=== PATIENT | male | born 1960 | race African-American/Black ===

== ENCOUNTER 2017-03-17 21:21 | Emergency (ER) | payer OTHER ==
[~2017-03-17] VITALS: Ht 175.3 cm; Wt 95.9 kg
[~2017-03-17 21:21] MED LIST: ASPI81TA50 PO; BIMA2.5D OP; BUME1TAB PO; CAPT25TA3 PO; CARV12.5 PO; CITA20TA5 PO; CRESTOR40 MG PO; RISP3TAB3 PO; SPIR50TA2 PO
[2017-03-17 21:30] VITALS: BP 105/61
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
== END 2017-03-17 22:40 | disposition home or self-care (01) ==
LOC: ER 21:21
DX: Z00.8 Encounter for other general examination (principal); S90.512A Abrasion, left ankle, initial encounter; S90.511A Abrasion, right ankle, initial encounter; F20.9 Schizophrenia, unspecified; I11.0 Hypertensive heart disease with heart failure; I50.40 Unspecified combined systolic (congestive) and diastolic (congestive) heart failure; E78.00 Pure hypercholesterolemia, unspecified; Y04.0XXA Assault by unarmed brawl or fight, initial encounter; Y93.89 Activity, other specified; Y99.8 Other external cause status; Y92.89 Other specified places as the place of occurrence of the external cause
CPT/HCPCS: 99283

== ENCOUNTER 2017-03-23 08:02 | Emergency (ER) | payer OTHER ==
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
--- NOTE | 2017-03-23 08:54 | RAD ---
Left foot, 2 views, 03/23/2017: History: Foot pain, no known injury No fracture or dislocation is identified. No destructive bony lesion is seen. There is mild subcutaneous edema. IMPRESSION: No acute bony abnormality is detected.
== END 2017-03-23 09:15 | disposition home or self-care (01) ==
LOC: ER 08:02
DX: Z00.00 Encounter for general adult medical examination without abnormal findings (principal); M79.672 Pain in left foot; I25.10 Atherosclerotic heart disease of native coronary artery without angina pectoris; I11.0 Hypertensive heart disease with heart failure; I50.9 Heart failure, unspecified; F20.9 Schizophrenia, unspecified; E78.5 Hyperlipidemia, unspecified; H40.9 Unspecified glaucoma
CPT/HCPCS: 73620; 99284

== ENCOUNTER 2017-04-14 14:26 | Emergency (ER) | payer OTHER ==
[~2017-04-14] VITALS: Ht 175.3 cm; Wt 95.9 kg
--- NOTE | 2017-04-14 14:47 | RAD ---
Indication: CHF. Time of exam 1442 hours. FINDINGS: The heart size is normal. The lungs are clear. No pleural effusion or pneumothorax is identified. The pulmonary vascularity is normal. IMPRESSION: No acute abnormality detected.
--- NOTE | 2017-04-14 14:56 | EKG ---
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
[2017-04-14 15:49] VITALS: BP 138/88
== END 2017-04-14 15:35 | disposition home or self-care (01) ==
LOC: ER 14:26
DX: Z71.1 Person with feared health complaint in whom no diagnosis is made (principal); R10.9 Unspecified abdominal pain; F20.9 Schizophrenia, unspecified; I50.9 Heart failure, unspecified; Z59.0 Homelessness
CPT/HCPCS: 71010; 93005; 99284-25

== ENCOUNTER 2017-05-28 14:59 | Emergency (ER) | payer OTHER ==
--- NOTE | 2017-05-28 15:54 | PHYS DOC ---
Past History Past Medical History: CHF, Schizophrenia Past Surgical History: Other Alcohol Use: None Drug Use: None Adult General Chief Complaint Chief Complaint: evaluation HPI HPI 57-year-old male presenting to the emergency department today with his family who is wanting him to be examined. They're concerned because the patient is homeless. They're trying to find psychiatric care for the patient. The patient has a history of chronic schizophrenia but has not been able to get his medications for many months. Not recall what medications he is on. The patient denies being suicidal homicidal. He has not been progressively agitated. Review of systems is negative for fevers chills cough nausea vomiting diarrhea constipation. All other review of systems is negative unless otherwise noted in history of present illness. ED course: 57-year-old male presenting to the emergency department today with family looking for psychiatric care. I recommended the patient be seen by a psychiatrist tomorrow and potentially a psychologist. As for the patient's homelessness I recommended a local homeless care home or possibly moving in with his family who is here with him today. Particularly if the patient moved in with the family members here with him he probably would get his medications straightened out in a faster order then a homeless care home. The patient did not appear to be at harm to himself or others. On physical examination he was calm and collective did not appear acutely psychotic. He was not endorsing suicidal or homicidal ideation. He was in discharged home to follow-up with a psychiatrist and a psychologist within the week and I recommended the patient moved in with his family members until he can be rehabilitated into self- sustaining status. Review of Systems Review of Systems SEE ABOVE Allergies Allergies Allergies Coded Allergies Type Severity Reaction Last Updated Verified No Known Drug Allergies 12/07/16 No Physical Exam Physical Exam Constitutional: Well developed, well nourished, no acute distress, non-toxic appearance. [] HENT: Normocephalic, atraumatic, bilateral external ears normal, oropharynx moist, no oral exudates, nose normal. [] Eyes: PERRLA, EOMI, conjunctiva normal, no discharge. [] Neck: Normal range of motion, no tenderness, supple, no stridor. [] Cardiovascular:Heart rate regular rhythm, no murmur [] Lungs & Thorax: Bilateral breath sounds clear to auscultation [] Abdomen: Bowel sounds normal, soft, no tenderness, no masses, no pulsatile masses. [] Skin: Warm, dry, no erythema, no rash. [] Back: No tenderness, no CVA tenderness. [] Extremities: No tenderness, no cyanosis, no clubbing, ROM intact, no edema. [] Neurologic: Alert and oriented X 3, normal motor function, normal sensory function, no focal deficits noted. [] Psychologic: Psych: Appearance: Moderately disheveled M/S: Alert and oriented Mood/Affect: Normal, calm and appropriate, congruent Speech: Normal Insight: poor Hallucinations: None, he denies SI or HI: None EKG EKG [] Radiology/Procedures Radiology/Procedures [] Course & Med Decision Making Course & Med Decision Making Pertinent Labs and Imaging studies reviewed. (See chart for details) [] Dragon Disclaimer Dragon Disclaimer This chart was dictated in whole or in part using Voice Recognition software in a busy, high-work load, and often noisy Emergency Department environment. It may contain unintended and wholly unrecognized errors or omissions. Departure Departure: Impression: Primary Impression: Evaluation by medical service required Disposition: 01 HOME, SELF-CARE Condition: STABLE Referrals: MEGAN HUGO MD (PCP) Additional Instructions: Follow-up with your doctor in 2-3 days. Thank you for allowing us to participate in your care today. Followup with your primary care physician in 3 days if your symptoms do not improve. Call your Primary Doctor tomorrow and inform them of your visit today. If you do not have a primary care provider you can ask for a list of our primary care providers. Return to the emergency department you have any new or concerning findings. This should be evaluated by the primary care physician and any necessary consulting services for continued management within a few days after discharge. Return to emergency room if you have any new or concerning symptoms including but not limited to fever, chills, nausea, vomiting, intractable pain, any new rashes, chest pain, shortness of air, uncontrolled bleeding, difficulty breathing, and/or vision loss. DELONTE SLATER MD May 28, 2017 15:54
[2017-05-28 16:00] VITALS: BP 120/66
== END 2017-05-28 16:25 | disposition home or self-care (01) ==
LOC: ER 14:59
DX: Z04.6 Encounter for general psychiatric examination, requested by authority (principal); F20.9 Schizophrenia, unspecified; I50.9 Heart failure, unspecified; Z59.0 Homelessness
CPT/HCPCS: 99284

== ENCOUNTER 2021-08-21 09:56 | Emergency (ER) | payer MEDICARE, OTHER ==
[~2021-08-21] VITALS: Ht 175.3 cm; Wt 98.0 kg
[~2021-08-21 09:56] MED LIST changes: -BUME1TAB PO; +BUME1TAB3 PO; -CITA20TA5 PO; +CITA20TA6 PO; -RISP3TAB3 PO; +RISP3TAB56 PO; -SPIR50TA2 PO; +SPIR50TA4 PO
[2021-08-21] MEDS ORDERED: IOHEXOL 350 MG/ML 100 ML VIAL. IV ONE (10:15)
[2021-08-21] MEDS ORDERED: IV NORMAL SALINE 1,000ML 1,000 ML IV SCH (10:15)
[2021-08-21] MEDS ORDERED: IOHEXOL 350 MG/ML 100 ML VIAL. ONE (10:16)
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
[2021-08-21 10:22] LABS: BASO % 1 % (0-3); EOS # 0.1 x10^3/uL (0.0-0.7); EOS % 1 % (0-3); HEMATOCRIT 47.7 % (39.0-53.0); HEMOGLOBIN 15.9 g/dL (13.0-17.5); LYMPH # 1.9 x10^3/uL (1.0-4.8); LYMPH % 24 % (24-48); MEAN CORPUSCULAR HEMOGLOBIN 32 pg (25-35); MEAN CORPUSCULAR HGB CONC 33 g/dL (31-37); MEAN CORPUSCULAR VOLUME 96 fL (79-100); MONO # 0.7 x10^3/uL (0.0-1.1); MONO % 9 % (0-9); NEUT % 65 % (31-73); PLATELET COUNT 108 x10^3/uL (140-400); RED BLOOD COUNT 4.99 x10^6/uL (4.30-5.70); RED CELL DISTRIBUTION WIDTH 13.7 % (11.5-14.5); WHITE BLOOD COUNT 7.7 x10^3/uL (4.0-11.0)
[2021-08-21] MEDS ORDERED: CONTRAST GIVEN. MC PRN (10:30)
[2021-08-21] MEDS ORDERED: ASPIRIN RECTAL 300 MG SUPP. PR ONE (10:30)
[2021-08-21 10:40] LABS: ALBUMIN 2.4 g/dL (3.4-5.0); CREATININE 0.7 mg/dL (0.7-1.3); GFR 139.2; MAGNESIUM 1.3 mg/dL (1.8-2.4); TOTAL BILIRUBIN 0.2 mg/dL (0.2-1.0); TOTAL PROTEIN 4.7 g/dL (6.4-8.2)
--- NOTE | 2021-08-21 10:42 | RAD ---
AP chest. HISTORY: Code stroke, weakness AP view was taken of the chest. There is no pleural effusion. Heart is normal in size. Patient's take n a poor inspiration. There are no confluent areas of infiltrate. IMPRESSION: 1. Poor inspiration. 2. No acute infiltrates. Electronically signed by: Norm Blanco MD (08/21/2021 10:40 AM) [id number]
[2021-08-21] MEDS ORDERED: MAGNESIUM SULFATE 2GM 50 ML IV ONE (11:15)
--- NOTE | 2021-08-21 11:17 | PHYS DOC ---
Past History Past Medical History: CHF, Schizophrenia Past Medical History Limited secondary to expressive aphasia/dysarthria Past Surgical History: Other Additional Past Surgical Histo: unknown Past Surgical History Limited secondary to expressive aphasia/dysarthria Alcohol Use: Sober Drug Use: None Social History Limited secondary to expressive aphasia/dysarthria General Adult EDM: Chief Complaint: NEURO SYMPTOMS/DEFICITS HPI: HPI: 61-year-old male presents via EMS with report of code stroke. Patient was found by family members to be confused with slurred speech and right-sided weakness. Patient does have a history of prior CVA with unknown deficit. No known trauma. Unclear if patient is on any blood thinners. Patient is a poor historian. History of present illness limited secondary to expressive aphasia/dysarthria Review of Systems: Review of Systems: Constitutional: Denies fever Respiratory: Denies shortness of breath Cardiovascular: Denies chest pain GI: Denies vomiting Neurologic: Reports right sided weakness, expressive aphasia, and dysarthria Review of systems limited secondary to severe expressive aphasia and dysarthria Current Medications: Current Meds: Current Medications Medications (Trade) Dose Ordered Sig/Shaila Start Time Stop Time Status Last Admin Dose Admin Aspirin (Aspirin Rectal Supp) 300 mg 1X ONCE 08/21/21 10:30 08/21/21 10:31 DC 08/21/21 10:47 300 MG Info (Do NOT chart on this entry -- for MONITORING) 1 each PRN DAILY PRN 08/21/21 10:30 08/23/21 10:29 Iohexol (Omnipaque 350 Mg/ml) 100 ml STK-MED ONCE 08/21/21 10:16 08/21/21 10:16 DC Magnesium Sulfate 50 ml @ 25 mls/hr 1X ONCE 08/21/21 11:15 08/21/21 13:14 Potassium Chloride 100 ml @ 100 mls/hr Q1H 08/21/21 11:15 08/21/21 15:14 Sodium Chloride 1,000 ml @ 1,000 mls/hr Q1H 08/21/21 10:15 08/21/21 11:14 DC 08/21/21 09:20 1,000 MLS/HR Allergies: Allergies: Allergies Coded Allergies Type Severity Reaction Last Updated Verified No Known Drug Allergies 12/07/16 No Physical Exam: PE: Constitutional: Well developed, well nourished HENT: Normocephalic, atraumatic, right facial droop Eyes: PERRL, EOMI, conjunctiva normal, no discharge, no nystagmus Neck: Normal range of motion, no tenderness, supple Lungs & Thorax: No respiratory distress, equal chest rise and fall Abdomen: Soft, no tenderness Skin: Warm, dry, no erythema, no rash Extremities: No tenderness, no deformity, no edema Neurologic: Alert, right facial droop, right arm drift without touching, decreased sensation primarily to right hand, severe expressive aphasia and dysarthria Current Patient Data: Labs: Laboratory Tests Test 08/21/21 09:58 08/21/21 10:15 08/21/21 11:06 White Blood Count 7.7 x10^3/uL (4.0-11.0) Red Blood Count 4.99 x10^6/uL (4.30-5.70) Hemoglobin 15.9 g/dL (13.0-17.5) Hematocrit 47.7 % (39.0-53.0) Mean Corpuscular Volume 96 fL (79-100) Mean Corpuscular Hemoglobin 32 pg (25-35) Mean Corpuscular Hemoglobin Concent 33 g/dL (31-37) Red Cell Distribution Width 13.7 % (11.5-14.5) Platelet Count 108 x10^3/uL (140-400) L Neutrophils (%) (Auto) 65 % (31-73) Lymphocytes (%) (Auto) 24 % (24-48) Monocytes (%) (Auto) 9 % (0-9) Eosinophils (%) (Auto) 1 % (0-3) Basophils (%) (Auto) 1 % (0-3) Neutrophils # (Auto) 5.0 x10^3uL (1.8-7.7) Lymphocytes # (Auto) 1.9 x10^3/uL (1.0-4.8) Monocytes # (Auto) 0.7 x10^3/uL (0.0-1.1) Eosinophils # (Auto) 0.1 x10^3/uL (0.0-0.7) Basophils # (Auto) 0.0 x10^3/uL (0.0-0.2) Prothrombin Time 11.8 SEC (9.4-11.4) H Prothrombin Time INR 1.1 (0.9-1.1) Activated Partial Thromboplast Time 26 SEC (23-33) Sodium Level 144 mmol/L (136-145) Potassium Level 3.0 mmol/L (3.5-5.1) L Chloride Level 111 mmol/L (98-107) H Carbon Dioxide Level 21 mmol/L (21-32) Anion Gap 12 (6-14) Blood Urea Nitrogen 9 mg/dL (8-26) Creatinine 0.7 mg/dL (0.7-1.3) Estimated GFR (Cockcroft-Gault) 139.2 BUN/Creatinine Ratio 13 (6-20) Glucose Level 86 mg/dL (70-99) Calcium Level 6.0 mg/dL (8.5-10.1) *L Magnesium Level 1.3 mg/dL (1.8-2.4) L Total Bilirubin 0.2 mg/dL (0.2-1.0) Aspartate Amino Transferase (AST) 18 U/L (15-37) Alanine Aminotransferase (ALT) 24 U/L (16-63) Alkaline Phosphatase 46 U/L (46-116) Ammonia 21 mcmol/L (11-34) Creatine Kinase 123 U/L (39-308) Creatine Kinase MB (Mass) 1.0 ng/mL (0.0-3.6) Creatine Kinase MB Relative Index 0.8 % (0-4) Troponin I High Sensitivity 7 ng/L (4-75) Total Protein 4.7 g/dL (6.4-8.2) L Albumin 2.4 g/dL (3.4-5.0) L Albumin/Globulin Ratio 1.0 (1.0-1.7) Lactic Acid Level 1.3 mmol/L (0.4-2.0) Glucose (Fingerstick) 114 mg/dL (70-99) H Vital Signs: Vital Signs Date Time Temp Pulse Resp B/P (MAP) Pulse Ox O2 Delivery O2 Flow Rate FiO2 08/21/21 10:05 97.9 83 20 119/71 (87) 94 Room Air EKG: EKG: @1012 NSR at 71bpm, NO ST elevation, QRS 90ms, QT/QTc 490/538ms, Q wave I and aVL, V3 with artifact noted Radiology/Procedures: Radiology/Procedures: PROCEDURE: CT CODE STROKE HEAD WO CT HEAD INDICATION: Reason: CODE STROKE, FACIAL DROOP, SLURRED SPEECH / Spl. Instructions: / History: COMPARISON: None Available. Exposure: One or more of the following individualized dose reduction techniques were utilized for this examination: 1. Automated exposure control 2. Adjustment of the mA and/or kV according to patient size 3. Use of iterative reconstruction technique TECHNIQUE: 5 mm contiguous axial images were obtained from the skull base to the vertex in both bone and soft tissue algorithm. FINDINGS: Small hypodensity identified in the right cerebellum likely old infarct . No evidence of acute intracranial hemorrhage. No extra-axial fluid collections. No mass effect or midline shift. Ventricular size is appropriate. Basal cisterns are patent. No fractures identified.Aquino-white differentiation is preserved.Globes and orbits are within normal limits. Paranasal sinuses and mastoid air cells are clear. IMPRESSION: 1. No acute intracranial findings. 2. 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 Consider follow-up MRI if symptoms persist. FOR INTERNAL CODING PURPOSES Critical result: Findings discussed with Dr. Long at 08/21/2021 10:11 AM. RESULT CODE: (C) PROCEDURE: PORTABLE CHEST 1V AP chest. HISTORY: Code stroke, weakness AP view was taken of the chest. There is no pleural effusion. Heart is normal in size. Patient's taken a poor inspiration. There are no confluent areas of infiltrate. IMPRESSION: 1. Poor inspiration. 2. No acute infiltrates. Electronically signed by: Norm Blanco MD (08/21/2021 10:40 AM) [id number] PROCEDURE: CT ANGIOGRAPHY HEAD AND NECK STUDY: CT angiography of the head and neck INDICATION: Right-sided weakness, slurred speech COMPARISON: None TECHNIQUE: Axial CT imaging of the head and neck utilizing angiography protocol and performed after the intravenous administration of contrast. Multiplanar reformats and 3D MIP acquisitions were obtained. Encountered areas of stenosis are measured per NASCET criteria. One or more of the following individualized dose reduction techniques were utilized for this examination: 1. Automated exposure control 2. Adjustment of the mA and/or kV according to patient size 3. Use of iterative reconstruction technique. FINDINGS: CTA NECK: Arch/Proximal Great Vessels: Heart is normal configuration. There is mild calcified atherosclerosis. Innominate artery origin is patent. There is mild narrowing of the left common carotid artery origin. Mild narrowing of the left subclavian artery origin and proximal left renal artery due to calcifications. Carotid Bifurcation/Cervical ICA: There is calcified atherosclerosis throughout the bilateral common carotid arteries. There is about 75 percent stenosis of the mid right common carotid artery due to calcifications (image 585, series 7), with milder, 40-50 percent narrowing over a 1.5 cm length proximal to this. Just distal to the stenosis, there is a linear filling defect in the mid right common carotid artery measuring 5 mm in length, suspicious for an intimal flap/focal dissection of indeterminate age (image 545, series 7). There is 50 percent narrowing of the right internal carotid artery origin due to calcifications. The rest of the cervical right internal carotid artery is normal in caliber and patent. There is extensive calcified atherosclerosis in the left common carotid artery with 70 percent focal stenosis of the mid left common carotid artery (image [id number] [phone], series 7) and milder, 50 percent narrowing over an approximately 4 cm length proximal to this. No narrowing of the left internal carotid artery . Vertebral Arteries: The right vertebral artery is nonvisualized from just beyond the origin to the level of 5-C6 likely due to chronic occlusion. It becomes reconstituted around the level of C5-C6 and is normal caliber and patent. The rest of the cervical portion. The left ureter is normal in caliber and patent.: CTA HEAD: Posterior Circulation: The intradural vertebral arteries, basilar artery, superior cerebellar arteries, and posterior cerebral arteries are normal in caliber and patent. Anterior Circulation: Mild calcified atherosclerosis in the intracranial internal carotid arteries without significant narrowing. The middle cerebral arteries are normal in caliber and patent. Anterior cerebral arteries are normal in caliber and patent. The anterior communicating artery. There is a small right and diminutive left posterior communicating artery. Veins: Dural venous sinuses are patent. MISCELLANEOUS: Mild emphysema and patchy opacities in the lung apices, nonspecific. There is moderate degenerative disc disease in cervical spine. IMPRESSION: 1. Linear filling defect in the mid right common carotid artery suspicious for intimal flap/focal dissection, age indeterminate. 2. Extensive calcified atherosclerosis in the common carotid arteries resulting in 75 percent focal stenosis in the mid right common carotid artery and 70 percent focal stenosis in the mid left common carotid artery, and milder narrowing elsewhere in the common carotid arteries. 3. 50 percent narrowing of the right internal carotid artery origin. No significant narrowing of the left internal carotid artery origin. 4. 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 5. Emphysema and mild opacities in the lung apices, nonspecific. FOR INTERNAL CODING PURPOSES Critical result: Findings discussed with Dr. Long at 08/21/2021 11:01 AM. Additional findings discussed at 11:35 AM on 08/21/2021 RESULT CODE: (C) Heart Score: C/O Chest Pain: N/A Course & Med Decision Making: Course & Med Decision Making Pertinent Labs and Imaging studies reviewed. (See chart for details) Patient presents via EMS as code stroke with report of right-sided weakness and difficulty speaking. Last known well last night. Patient does have history of prior CVA. Patient is a poor historian secondary to expressive aphasia and significant dysarthria. NIHSS [address] head immediately obtained without acute signs of bleed. Labs obtained and posted to chart. Hypokalemia and hypomagnesemia addressed. Hypercalcemia also noted however no significant QT prolongation noted and no [place] or Trousseau's signs appreciated. More likely secondary to decreased albumin. CTA head/neck with signs of carotid stenosis and an area that radiology noted cannot exclude carotid dissection that is age indeterminate. Rectal ASA given. Discussed CTA neck findings with Dr. Briseno (vascular surgery) at [facility]. Recommendation for administration of heparin per DVT protocol. Heparin bolus/gtt initiated. Patient requiring transfer to higher level facility for further evaluation and treatment. Discussed with Dr. Barbosa (hospitalist) who is in agreement with transf er to [facility] for admission. Dragon Disclaimer: Dragon Disclaimer: This electronic medical record was generated, in whole or in part, using a voice recognition dictation system. Departure Departure: Impression: Primary Impression: Acute CVA (cerebrovascular accident) Additional Impressions: Hypocalcemia Hypokalemia Hypomagnesemia Disposition: 02 SHORT TERM HOSPITAL ([facility]- Dr. Barbosa accepting) Condition: GUARDED Referrals: MEGAN HUGO MD (PCP) NIHSS - ED NIH Stroke Scale: NIH Stroke Scale Response (Comments) Value Level of Consciousness: 0 Alert/Responsive 0 LOC Questions: 2 Answers neither correct 2 LOC Commands: 1 Performs one task 1 Best Gaze: 0 Normal 0 Visual: 0 No visual loss 0 Facial Palsy: 1 Minor paralysis 1 Motor - Left Arm 0 No drift 0 Motor - Right Arm 1 Drifts but can hold 1 Motor - Left Leg 0 No drift 0 Motor: Right Leg 0 No drift 0 Limb Ataxia: 2 Two limbs 2 Sensory: 1 Mid to moderate loss 1 Best Language: 2 Severe aphasia 2 Dysathria: 2 Severe 2 Extinction and Inattention: 2 Extinction 2 Total 14 Critical Care Time Critical care time was 30 minutes which includes time at bedside, spent in discussion of patient's care with specialists and/or family members, with interpretation of laboratory and/or radiological studies and is exclusive of procedures. MICHAEL LONG DO Aug 21, 2021 11:16
--- NOTE | 2021-08-21 11:40 | EKG ---
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
--- NOTE | 2021-08-21 11:46 | RAD ---
STUDY: CT angiography of the head and neck INDICATION: Right-sided weakness, slurred speech COMPARISON: None TECHNIQUE: Axial CT imaging of the head and neck utilizing angiography protocol and performed after t he intravenous administration of contrast. Multiplanar reformats and 3D MIP acquisitions were obtaine d. Encountered areas of stenosis are measured per NASCET criteria. One or more of the following individualized dose reduction techniques were utilized for this examinat ion: 1. Automated exposure control 2. Adjustment of the mA and/or kV according to patient size 3. Use of iterative reconstruction technique. FINDINGS: CTA NECK: Arch/Proximal Great Vessels: Heart is normal configuration. There is mild calcified atherosclerosis. Innominate artery origin is patent. There is mild narrowing of the left common carotid artery origin. Mild narrowing of the left subclavian artery origin and proximal left renal artery due to calcificat ions. Carotid Bifurcation/Cervical ICA: There is calcified atherosclerosis throughout the bilateral common carotid arteries. There is about 75 percent stenosis of the mid right common carotid artery due to calcifications (imag e 585, series 7), with milder, 40-50 percent narrowing over a 1.5 cm length proximal to this. Just di stal to the stenosis, there is a linear filling defect in the mid right common carotid artery measuri ng 5 mm in length, suspicious for an intimal flap/focal dissection of indeterminate age (image 545, s eries 7). There is 50 percent narrowing of the right internal carotid artery origin due to calcifications. The rest of the cervical right internal carotid artery is normal in caliber and patent. There is extensive calcified atherosclerosis in the left common carotid artery with 70 percent focal stenosis of the mid left common carotid artery (image 574-596, series 7) and milder, 50 percent narro wing over an approximately 4 cm length proximal to this. No narrowing of the left internal carotid ar adrianne . Vertebral Arteries: The right vertebral artery is nonvisualized from just beyond the origin to the le santiago of 5-C6 likely due to chronic occlusion. It becomes reconstituted around the level of C5-C6 and i s normal caliber and patent. The rest of the cervical portion. The left ureter is normal in caliber a nd patent.: CTA HEAD: Posterior Circulation: The intradural vertebral arteries, basilar artery, superior cerebellar arterie s, and posterior cerebral arteries are normal in caliber and patent. Anterior Circulation: Mild calcified atherosclerosis in the intracranial internal carotid arteries wi thout significant narrowing. The middle cerebral arteries are normal in caliber and patent. Anterior cerebral arteries are normal in caliber and patent. The anterior communicating artery. There is a sma ll right and diminutive left posterior communicating artery. Veins: Dural venous sinuses are patent. MISCELLANEOUS: Mild emphysema and patchy opacities in the lung apices, nonspecific. There is moderate degenerative d isc disease in cervical spine. IMPRESSION: 1. Linear filling defect in the mid right common carotid artery suspicious for intimal flap/focal dis section, age indeterminate. 2. Extensive calcified atherosclerosis in the common carotid arteries resulting in 75 percent focal s tenosis in the mid right common carotid artery and 70 percent focal stenosis in the mid left common c arotid artery, and milder narrowing elsewhere in the common carotid arteries. 3. 50 percent narrowing of the right internal carotid artery origin. No significant narrowing of the left internal carotid artery origin. 4. 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 5. Emphysema and mild opacities in the lung apices, nonspecific. FOR INTERNAL CODING PURPOSES Critical result: Findings discussed with Dr. James at 08/21/2021 11:01 AM. Additional findings discussed at 11:35 AM on 08/21/2021 RESULT CODE: (C) Electronically signed by: Kassandra Brock MD (08/21/2021 11:43 AM) [id number]
[2021-08-21] MEDS: POTASSIUM CHLORIDE 10MEQ 100 ML IV SCH ×2 (11:56→13:21)
[2021-08-21] MEDS ORDERED: HEPARIN for IV BOLUS 10,000 UNIT/10 ML VIAL. IV ONE (12:30)
[2021-08-21] MEDS ORDERED: HEPARIN 25,000UTS/250ML PREMIX 250 ML IV PRN (12:30)
[2021-08-21 13:14] VITALS: BP 133/76
[2021-08-21 23:07] LABS: CALCIUM PTH 8.4 mg/dL (8.6-10.2); CREATININE PTH 1.02 mg/dL (0.76-1.27); PTH INTACT 41 pg/mL (15-65)
== END 2021-08-21 13:50 | disposition short-term general hospital (02) ==
LOC: ER 09:56
DX: I63.9 Cerebral infarction, unspecified (principal); E83.51 Hypocalcemia; E87.6 Hypokalemia; E83.42 Hypomagnesemia; Z20.822 Contact with and (suspected) exposure to COVID-19
CPT/HCPCS: 36415; 70450; 70496; 70498; 71045; 80053; 82140; 82330; 82553; 82947; 83605; 83735; 83970; 84100; 84484; 85025; 85610; 85730; 87426; 93005; 96361; 96365; 96366; 96368; 96375; 99285; C9803; J1644; J3475; J3480; J7030; Q9967; U0003

== ENCOUNTER → 2021-11-06 | Outpatient (CLI) | payer MEDICARE ==
[~2021-11-06] MED LIST changes: +REGADENOSON 0.4 MG/5 ML DISP.SYRIN. IV ONE
--- NOTE | 2021-11-06 19:56 | RAD ---
MR#: [id number] Date of Study: 11/06/2021 Ordering Physician: QUINTON PARKER, Referring Physician: QUINTON PARKER, Tech: Dilma Trejo RVT,CRISSY APPROVED REPORT Patient Location: OUT-PATIENT Indications Claudication: PAD Grayscale images of the bilateral lower extremity arterial vessels demonstrates severe atheroscleroti c plaque. Spectral waveforms and color Doppler are overall consistent with severe inflow and outflow disease. Velocities are less than 30 cm/s. Waveforms are monophasic throughout the lower extremities. Suspec t severe [place] vessel occlusion with likely collateral circulation Risk Factors Hypertension Smoking VELOCITY AND DOPPLER WAVEFORM ANALYSIS RIGHT cm/secWaveformSeverity LEFT cm/secWaveform Severity pCFA 14.7pCFA 21.7 Prof Fem Art. 19.0 Prof Fem Art. 13.0 Fem Art Prox. 17.4Fem Art Prox. 25.7 Fem Art Mid. 17.7Fem Art Mid. 25.2 Fem Art Dist. 24.6Fem Art Dist. 14.9 Pop Art(Fossa) 13.0Pop Art(AK) 16.5 WEB SERVICES ARCHITECT Prox. 7.5PTA Prox. 10.4 WEB SERVICES ARCHITECT Dist. 8.7PTA Dist. 7.8 Per Art Prox. 5.9Per Art Prox. 5.2 AMI Prox. 8.7ATA Prox. 7.5 DPA 7DPA Critical Notification Critical Value: No <Conclusion> 1. Severe bilateral lower extremity arterial disease with monophasic waveforms. Suspect severe cynthia ve vessel occlusive disease with probable collateral flow throughout the bilateral lower extremities. Signed by : David Roberto, Electronically Approved : 11/06/2021 19:56:02
--- NOTE | 2021-11-06 19:57 | RAD ---
MR#: [id number] Date of Study: 11/06/2021 Ordering Physician: QUINTON PARKER, Referring Physician: QUINTON PARKER, Tech: Dilma Trejo RVT,CRISSY APPROVED REPORT Patient Location: OUT-PATIENT Exam Type: Ankle to Brachial Index Indications Claudication: PAD Ankle-brachial indices as noted below: Right brachial 106, left brachial 98 Right FILM LIBRARY CLERK 90, left FILM LIBRARY CLERK nondetectable Right DPA nondetectable, left FILM LIBRARY CLERK nondetectable Risk Factors Hypertension Smoking Pressures/Indices RightABI LeftABI Brachial 106mmHgBrachial 98mmHg Ankle(PT) 74tzQm8.8Ankle(PT) Critical Notification Critical Value: No <Conclusion> 1. Severely diminished bilateral ALEXANDREA at less than 0.8. Signed by : David Roberto, Electronically Approved : 11/06/2021 19:56:55
--- NOTE | 2021-11-08 13:44 | RAD ---
MR#: [id number] Date of Study: 11/06/2021 Ordering Physician: QUINTON PARKER, Referring Physician: MERLY NEVILLE Tech: ENRIQUE Reed ARRT (R) (N) APPROVED REPORT Test Type: Pharmacological Stress Nurse/Tech: AIDE Sainz Test Indications: LOPEZ Cardiac History: See Electronic Medical Record Medications: See Electronic Medical Record Medical History: See Electronic Medical Record Resting ECG: SR Resting Heart Rate: 67 bpm Resting Blood Pressure: 107/57mmHg Pretest Chest Pain: None Nurse/Tech Notes SR, NO ACUTE SIGNIFICANT CHANGES Consent: The procedure was explained to the patient in lay terms. Informed consent was witnessed. Jaun eout was entered into [employer]. History and Stress Test performed by ENRIQUE Reed ARRT (R) (N) Pharm. Details Pharmacologic stress testing was performed using 0.4mg per 5ml of regadenoson given intravenously ove r 7-10 seconds. Stress Symptoms No chest pain or symptoms. POST EXERCISE Reason for Termination: Infusion complete Target HR: No Max HR: 87 bpm 63% of Maximum Predicted HR: 136 bpm Exercise duration: 6 min:sec, Stage Max Blood Pressure: 110/59mmHg Blood Pressure response to exercise: Normal blood pressure response during stress. Chest Pain: No. Arrhythmia: No. ST Change: No. INTERPRETATION Stress EKG Conclusion: The resting EKG shows a sinus rhythm with mild nonspecific T wave changes. The stress EKG shows no significant changes from baseline. No EKG evidence of stress-induced ischemia. Imaging Protocol IMAGE PROTOCOL: Rest Tc-99m/stress Tc-99m 1 day Rest: Stress: Viability: Radiopharm.Tc99m [id number] Sestamibi [id number] 31mCi Img Date 11/06/2021 11/06/2021 Inj-Img [id number]. 90min. Rest Admin Site:IV - Left AntecubitalAdministrator: ENRIQUE Reed ARRT ([place])(N) Stress Admin Site: IV - Left AntecubitalAdministrator: Sayra Fiore, NMTCB, ARRT (R)(N) STRESS DATA End Diast. Vol.131.0mlAv. Heart Rate75.0bpm End Syst. Vol.74.0mlCO Index BSA0.0L/min Myocardial Mnvq817.0gEject. Fkkktytx92.0% Stress Rates Pk. Fill Rate2.36EDV/secLVtime Pk. Fill 259.79msec Pk. Empty Rate3.12ESV/secLVtime Pk. Ntdbo814.27msec 10/21 Pk. Fill0.63EDV/sec Stress Scores Regional WT2.00Summed WT31.00 Regional WM0.00Summed WM13.00 LV Perfusion The stress scans show slight inferior wall thinning. The resting images shows mild inferior wall thinning. Nuclear imaging shows no reversible ischemia. Nuclear imaging shows a fixed inferior wall defect which is more prominent on rest images. This is m ost consistent with an attenuation defect. Wall Motion Left ventricular systolic function shows an ejection fraction of 52% and mild global hypokinesis. LV Perf. Quant 17 Seg. SSS2.00 17 Seg. SRS9.00 17 Seg. SDS0.00 Stress Defect Extent (% LAD)2.50Rest Defect Extent (% LAD)4.40Rev. Defect Extent (% LAD)0.00 Stress Defect Extent (% LCX) 12.50Rest Defect Extent (% LCX)21.30Rev. Defect Extent (% LCX)0.00 Stress Defect Extent (% RCA)7.80Rest Defect Extent (% RCA)18.90Rev. Defect Extent (% RCA)0.00 Stress Defect Extent (% ELENA)6.10Rest Defect Extent (% ELENA)14.60Rev. Defect Extent (% ELENA)0.00 Conclusion 1. Baseline mildly abnormal EKG but no EKG evidence of stress-induced ischemia. 2. Nuclear imaging shows no reversible ischemia. 3. Nuclear imaging shows a mild fixed inferior wall defect which is most consistent with an attenuati on defect. 4. Left ventricular systolic function shows minimal global hypokinesis with an ejection fraction of 5 2%. 5. Moderate to moderately low risk Lexiscan nuclear stress test with no reversible ischemia and an ej ection fraction of 52%. Signed by : Tarik Florian MD Electronically Approved : 11/08/2021 13:44:16
== END ==
LOC: NM 07:42
PROVIDERS: ATTEND Internal Medicine Cardiovascular Disease
DX: R94.31 Abnormal electrocardiogram [ECG] [EKG] (principal); I73.9 Peripheral vascular disease, unspecified; R06.00 Dyspnea, unspecified; I77.89 Other specified disorders of arteries and arterioles; Z87.891 Personal history of nicotine dependence
CPT/HCPCS: 78452; 93017; 93923; 93925; A9500; J2785